=== PATIENT | female | born 1945 | race Caucasian/White ===

== ENCOUNTER 2020-07-10 04:15 | Emergency (ER) | payer MEDICARE, SELFPAY ==
--- NOTE | ~2020-07-10 | CT_ITS ---
EXAMINATION: CT abdomen pelvis wo con DATE: 07/10/2020 06:22 INDICATION: Left flank pain TECHNIQUE: Computed tomography (CT) of the abdomen and pelvis was performed without intravenous contr ast. The dose-length product (DLP) was 475.29 mGy-cm. Automated exposure control and iterative recons truction technique were employed. COMPARISON: None FINDINGS: There are multiple nodules of the visualized lung bases. Mucous plugging is also noted in t he right lower lobe. There are patchy airspace opacities of the lung bases. There is no pleural effus ion the heart size is normal. The liver, spleen, gallbladder, and adrenal glands are normal. There is low attenuation in the head of the pancreas without evidence of pancreatic duct abnormality, likely fatty infiltration. Tiny hyperattenuating lesion of the left kidney measuring up to 5 mm are too smal l to characterize but likely reflect hemorrhagic cysts. A 2 cm simple cyst is noted in the left kidne y. The right kidney is unremarkable. No stones are identified in the kidneys, ureters, or bladder. Th ere is no hydronephrosis or hydroureter. No pathologically enlarged abdominal or pelvic lymph nodes a re identified. There is no free intraperitoneal gas or evidence of bowel obstruction. Colonic diverti culosis is present without evidence of diverticulitis. There are fat-containing inguinal hernias. The re is severe lumbar spondylosis. IMPRESSION: 1. No CT correlate for the patient's symptoms. 2. Multiple nodules of the visualized lung bases which could be infectious or inflammatory however de dicated chest CT is recommended. These findings and recommendations were communicated to the Emergenc y Department at 0652 hours on 07/10/2020 by the [employer] Radiologist. Reviewed, dictated and finalized at location A. IMPRESSION: 1. No CT correlate for the patient's symptoms. 2. Multiple nodules of the visualized lung bases which could be infectious or i nflammatory however dedicated chest CT is recommended. These findings and recom mendations were communicated to the Emergency Department at 0652 hours on 2019 by the [employer] Radiologist.
[2020-07-10 04:24] VITALS: BP 160/93; PULSE 67; RESP 18; TEMP 36.6; O2SAT 98
[2020-07-10] MEDS: KETOROLAC 30 MG/ML VIAL (*BKC) IV PUSH (05:03)
[2020-07-10] MEDS: ONDANSETRON INJ 4 MG/2 ML VIAL IV PUSH (05:03)
--- NOTE | 2020-07-10 05:10 | ED.GENADULT ---
HPI - General Adult General Chief complaint: Abdominal Pain Stated complaint: Left flank pain Time Seen by Provider: 07/10/20 04:35 History of Present Illness HPI narrative: Patient is a 75-year-old female who presents ER with left-sided flank pain. Sudden onset earlier this evening. Associated with nausea and vomiting. She is also had frequent formed stools. No dysuria or hematuria. No urinary frequency. Has history of kidney stones many years ago and this feels similar. She is found no aggravating factors. She is tried heat and ice to no avail. She is also taken some Pepcid without improvement. Related Data Home Medications Medication Instructions Recorded Confirmed ascorbic acid (vitamin C) [Vitamin 500 mg PO DAILY 10/03/19 10/03/19 C] aspirin [Adult Low Dose Aspirin] 81 mg PO DAILY 10/03/19 10/03/19 atorvastatin 10 mg PO DAILY 10/03/19 10/03/19 cholecalciferol (vitamin D3) 1,000 unit PO DAILY 10/03/19 10/03/19 [Vitamin D3] fluticasone propionate 1 spray INTRANASAL BID 10/03/19 10/03/19 glucosamine-chondroitin 1 tablet PO DAILY 10/03/19 10/03/19 lisinopril 40 mg PO DAILY 10/03/19 10/03/19 montelukast 10 mg PO DAILY 10/03/19 10/03/19 conjugated estrogens 0.625 mg/gram See Rx Instructions .ROUTE .COMPLEX 07/07/20 vaginal cream Allergies Allergy/AdvReac Type Severity Reaction Status Date / Time ciprofloxacin Allergy Unknown Rash Verified 07/10/20 04:20 clarithromycin Allergy Unknown Rash Verified 07/10/20 04:20 codeine Allergy Unknown Nausea Verified 07/10/20 04:20 nitrofurantoin AdvReac Mild Headache Verified 07/10/20 04:20 [From Macrobid] Review of Systems Review of Systems: All systems reviewed & are unremarkable except as noted in HPI and below Constitutional: Constitutional: Denies chills, Denies fever(s) and Denies weakness Gastrointestinal: Gastrointestinal: Reports abdominal pain, Denies diarrhea, Reports nausea and Reports vomiting Genitourinary: Genitourinary: Denies hematuria, Denies nocturia, Denies dysuria and Reports flank pain PMFSH Social History Social History Smoking status: Never smoker Alcohol intake: never Exam Narrative: Exam Narrative: GENERAL: Uncomfortable-appearing, well-nourished, and in no acute distress. HEAD: Normocephalic, atraumatic. CHEST: Clear to auscultation. No respiratory distress. HEART: Regular rate and rhythm. Normal peripheral pulses. ABDOMEN: Soft, nontender, nondistended, no CVA tenderness. Back: No reproducible paraspinal muscular tenderness or midline tenderness. EXTREMITIES: Normal range of motion. No edema. SKIN: Warm, dry, no rash. NEURO: Alert and oriented x3. PSYCH: Normal mood and affect. Course Course Emergency Course: Patient informed of results. Talked about importance of follow-up with her PCP. She will be seen in 1 week but will call Sunday. Pain improved with Toradol and morphine. Patient reports negative Cologuard 1 year ago as well as negative mammogram. Vital Signs Vital signs: Vital Signs Temperature 97.9 F 07/10/20 04:24 Pulse Rate 67 07/10/20 04:24 Respiratory Rate 18 07/10/20 04:24 Blood Pressure 160/93 H 07/10/20 04:24 Pulse Oximetry 98 07/10/20 04:24 Temperature 97.9 F 07/10/20 04:24 Pulse Rate 64 07/10/20 06:24 Respiratory Rate 17 07/10/20 06:24 Blood Pressure 162/77 H 07/10/20 06:24 Pulse Oximetry 95 07/10/20 06:24 Medical Decision Making Vital Signs Vital Signs: Vital Signs Temperature 97.9 F 07/10/20 04:24 Pulse Rate 67 07/10/20 04:24 Respiratory Rate 18 07/10/20 04:24 Blood Pressure 160/93 H 07/10/20 04:24 Pulse Oximetry 98 07/10/20 04:24 Temperature 97.9 F 07/10/20 04:24 Pulse Rate 64 07/10/20 06:24 Respiratory Rate 17 07/10/20 06:24 Blood Pressure 162/77 H 07/10/20 06:24 Pulse Oximetry 95 07/10/20 06:24 Lab Data Result diagrams: 07/10/20 05:06
[2020-07-10 05:16] LABS: Basophils Percent Auto 0.4 % (0.2-1.2); Eosinophils Absolute Auto 0.1 K/mm3 (0-0.3); Eosinophils Percent Auto 0.9 % (0-4.4); Hematocrit 44.7 % (37.0-47.0); Hemoglobin 14.8 g/dL (12.0-15.0); Immature Granulocyte Absolute 0.02 K/mm3 (0.00-0.031); Immature Granulocyte Percent A 0.2 % (0-0.5); Lymphocytes Absolute Auto 1.26 K/mm3 (0.9-3.2); Lymphocytes Percent Auto 13.8 % (18.3-44.2); Mean Corpuscular HGB Conc 33.1 g/dl (32-36); Mean Corpuscular Hemoglobin 30.2 pg (26-34); Mean Corpuscular Volume 91.2 fl (80-100); Monocytes Absolute Auto 0.5 K/mm3 (0.1-0.6); Monocytes Percent Auto 5.6 % (2.6-8.5); Neutrophils Absolute Auto 7.2 K/mm3 (1.3-6.7); Neutrophils Percent Auto 79.1 % (45.5-73.1); Platelet Count Result 229 k/mm3 (150-375); Red Cell Distribution Width 12.3 % (11.5-14.5); White Blood Count 9.2 K/mm3 (4.5-10.0)
[2020-07-10 05:26] LABS: Anion Gap 9 mmol/L (8-16); Blood Urea Nitrogen 14 mg/dL (7-17); Calcium 10.3 mg/dL (8.4-10.2); Carbon Dioxide 28 mmol/L (22-30); Chloride 100 mmol/L (98-107); Estimated CRCL calculation 56 ml/min; Estimated Glomerular Filt Rate > 60; Glucose 120 mg/dL (65-105); Potassium 4.3 mmol/L (3.4-5.0); Sodium 137 mmol/L (137-145)
[2020-07-10 05:45] LABS: Add Urine Microscopic? YES; Appearance Urine Cloudy (Clear); Bilirubin Urine Negative (Negative); Blood Urine Negative (Negative); Color Urine Straw (Yellow); Glucose Urine UA Negative (Negative); Ketones Urine Negative (Negative); Leukocyte Esterase Ur Negative LEU/UL (Negative); Nitrate Urine Negative (Negative); Protein Urine 1+ mg/dL (Negative); Specific Grav Ur 1.011 (1.001-1.035); Squamous Epithelial Cell Urine Few /hpf (Few); Urobilinogen Urine Negative mg/dL (<2.0); WBC Urine 0-3 /hpf
[2020-07-10 06:24] VITALS: BP 162/77; PULSE 64; RESP 17; O2SAT 95
[2020-07-10] MEDS: MORPHINE SULFATE 4 MG/ML INJ IV PUSH (06:26)
[2020-07-10 07:08] VITALS: BP 138/72; PULSE 66; RESP 18; O2SAT 98
== END 2020-07-10 07:21 | disposition home or self-care (01) ==
PROVIDERS: Emergency Provider Emergency Medicine; PCP Emergency Medicine
DX: M54.5 Low back pain (principal); R91.8 Other nonspecific abnormal finding of lung field
CPT/HCPCS: 36415; 74176; 80048; 81001; 85025; 96374; 96375; 99284; J1885; J2270; J2405

== ENCOUNTER 2020-07-22 11:20 | Outpatient (CLI) | payer MEDICARE, SELFPAY ==
--- NOTE | ~2020-07-22 | CT_ITS ---
EXAMINATION:CT chest wo con DATE: 07/22/2020 11:47 INDICATION: Solitary pulmonary nodule. TECHNIQUE: Computed tomography (CT) of the chest was performed without intravenous contrast. Automate d exposure control and iterative reconstruction technique were employed. The dose-length product (DLP ) was 72.52 mGy-cm. COMPARISON: CT abdomen and pelvis 07/10/2020 FINDINGS: There is mild scarring at the lung apices. There is mild atelectasis bilaterally. There is mucous plugging in apicoposterior segment left upper lobe with local tree-in-bud opacities and centri lobular nodules. There are bronchoceles involving left upper lobe, right middle lobe, and right lower lobe. There is mild bronchiectasis in lingula. There are multiple scattered nodules in the lungs renita suring up to 8 mm in right lower lobe. No pleural effusion. The heart size is normal. There are coron radha artery calcifications. No pericardial effusion. There is mild pectus excavatum. There is moderate thoracic spondylosis. IMPRESSION: 1. Pulmonary nodules measuring up to 8 mm, which may be benign or less likely malignant. Consider non contrast low-dose chest CT in 3 months. Reviewed, dictated and finalized at location A. IMPRESSION: 1. Pulmonary nodules measuring up to 8 mm, which may be benign or less likely m alignant. Consider noncontrast low-dose chest CT in 3 months.
== END 2020-07-22 11:21 | disposition home or self-care (01) ==
LOC: ANHIMG 11:22
PROVIDERS: PCP Emergency Medicine; Visit Provider Emergency Medicine
DX: R91.8 Other nonspecific abnormal finding of lung field (principal)
CPT/HCPCS: 71250

== ENCOUNTER 2020-08-12 07:31 | Outpatient (CLI) | payer MEDICARE, SELFPAY ==
--- NOTE | 2020-08-12 07:48 | ECHO_ITS ---
Patient Info Name: Lois Serrano Age: 75 years : 1945 Gender: Female Ht: 66 in Wt: 162 lbs BSA: 1.86 m2 HR: 52 bpm BP: 199 / 100 mmHg Technical Quality: Fair Exam Date: 08/12/2020 8:02 AM Exam Location: [facility] Patient Status: Outpatient Admit Date: 08/12/2020 Staff Ordering Physician: Clifton Gipson MD Butt Welder: Skyla Guzman RDCS Attending Provider: Clifton Gipson MD Referring Physician: Branadn DÍAZ; Exam Type: CA echo doppler color flow Study Info Indications R01.1 - Cardiac murmur, unspecified Complete two-dimensional, color flow and Doppler transthoracic echocardiogram is performed. Summary 1. Complete two-dimensional, color flow and Doppler transthoracic echocardiogram is performed. 2. Left ventricular chamber dimension is normal. 3. Left ventricular systolic function is normal, estimated at 60-65%. 4. There is mildly increased left ventricular wall thickness. 5. The left ventricular diastolic function is grade I diastolic dysfunction. 6. E/e' 13 is mildly elevated. 7. Right ventricular systolic function is mildly reduced based on a TAPSE at 1.4 cm. Left Ventricle E/e' 13 is mildly elevated. Left ventricular chamber dimension is normal. Left ventricular systolic function is normal, estimated at 60-65%. There is mildly increased left ventricular wall thickness. The left ventricular diastolic function is grade I diastolic dysfunction. Right Ventricle Right ventricular systolic function is mildly reduced based on a TAPSE at 1.4 cm. Right ventricular chamber dimension is not well visualized. Left Atria Left atrial chamber dimension is normal. Right Atria Right atrial chamber dimension is normal. Aortic Valve The aortic valve is trileaflet. There is no aortic valve stenosis. There is no aortic valve regurgitation. Pulmonic Valve There is no pulmonic regurgitation. Mitral Valve There is no mitral valve stenosis. There is no mitral valve regurgitation. Tricuspid Valve There is no tricuspid valve regurgitation. Pericardium/Pleural There is no pericardial effusion. Aorta The aortic root size at the sinus of Valsalva is normal. Left Ventricular Outflow Tract Name Value Normal LVOT 2D LVOT Diameter 2.0 cm LVOT Doppler LVOT Peak Gradient 5 mmHg LVOT Mean Gradient 2 mmHg LVOT VTI 28 cm LVOT VTI/AV VTI Ratio 1.1 LVOT Stroke Volume 85 ml LVOT CO 4.6 l/min LVOT CI 2.5 l/min/m2 Mitral Valve Name Value Normal MV Doppler MV Decel [place] 212 cm/s2 MV PHT 76 ms MV Area (PHT) 2.9 cm2
== END 2020-08-12 07:32 | disposition home or self-care (01) ==
LOC: ANHCARD 07:33
PROVIDERS: PCP Emergency Medicine; Visit Provider Emergency Medicine
DX: R01.1 Cardiac murmur, unspecified (principal); R84.2 Abnormal level of other drugs, medicaments and biological substances in specimens from respiratory organs and thorax; R93.1 Abnormal findings on diagnostic imaging of heart and coronary circulation
CPT/HCPCS: 93306

== ENCOUNTER 2021-02-04 08:37 | Outpatient (CLI) | payer MEDICARE, SELFPAY ==
--- NOTE | ~2021-02-04 | CT_ITS ---
EXAMINATION: CT chest high resolution [facility] EXAM DATE: 02/04/2021 08:58 INDICATION: R91.1 - Solitary pulmonary nodule. TECHNIQUE: Spiral CT of the chest without contrast. HRCT. Axial, coronal and sagittal images were re viewed. Coronal maximum intensity pixel images of chest reviewed. The dose-length product (DLP) for this examination was 145.17 mGy-cm. The exposure was tailored according to patient size (auto mA ex posure control), and iterative reconstruction (ASIR) was used as additional dose reduction technique. Comparison is made to prior examination from 07/22/2020. FINDINGS: No intralobular septal thickening on the HRCT. Again there are scattered pulmonary nodules up to 8 mm in size, unchanged. Other larger fingerlike opacities appear to be within impacted subsegm ental bronchi, probably bronchoceles. There is left basilar scarring. Some scattered tree-in-bud post infectious residua. Mild emphysema. There is mild bronchiectasis. There are no pleural or pericardial effusions. There is no mediastinal, hilar or axillary lymphadenopathy. There is no pneumothorax. Heart normal in size. There is minimal coronary arterial calcification, arterial sclerosis. The re is 2 cm left renal cyst. There is thoracic spondylosis without osteoblastic or osteolytic lesions identified. A IMPRESSION: 1. Stable post infectious residua and bronchoceles. 2. Mild emphysema and bronchiectasis. 3. No suspicious findings. Reviewed, dictated and finalized at location A.
== END 2021-02-04 08:38 | disposition home or self-care (01) ==
PROVIDERS: PCP Emergency Medicine; Visit Provider Emergency Medicine
DX: R91.1 Solitary pulmonary nodule (principal); R91.8 Other nonspecific abnormal finding of lung field; J43.9 Emphysema, unspecified; J47.9 Bronchiectasis, uncomplicated
CPT/HCPCS: 71250

== ENCOUNTER → 2021-04-06 14:56 | Outpatient (CLI) | payer MEDICARE, SELFPAY ==
--- NOTE | ~2021-04-06 | MM_ITS ---
EXAMINATION: MM screening [facility] w brandon HISTORY: Screening TECHNIQUE: Craniocaudal and mediolateral oblique 3-D tomosynthesis images were obtained and synthetic 2-D images were generated. CAD analysis was submitted and interpreted. COMPARISON: Comparison to multiple prior studies sequentially, with oldest reviewed study dated 08/04. BREAST PARENCHYMAL COMPOSITION: There are scattered areas of fibroglandular density. FINDINGS: There is no evidence of suspicious mass, calcification, or architectural distortion to sugg est malignancy in either breast. There has been no suspicious interval change. IMPRESSION: 1. No mammographic evidence of malignancy. 2. Recommend routine screening mammography in one year. BI-RADS Category 1: Negative Reviewed, dictated and finalized at location A.
== END ==
PROVIDERS: PCP Internal Medicine; Visit Provider Internal Medicine
DX: Z12.31 Encounter for screening mammogram for malignant neoplasm of breast (principal)
CPT/HCPCS: 77063; 77067

== ENCOUNTER → 2022-11-23 11:04 | Outpatient (CLI) | payer MEDICARE, SELFPAY ==
--- NOTE | ~2022-11-23 | MM_ITS ---
EXAMINATION: MM screening [facility] BI w brandon HISTORY: Screening mammogram TECHNIQUE: Craniocaudal and mediolateral oblique 3-D tomosynthesis images were obtained and synthetic 2-D images were generated. CAD analysis was submitted and interpreted. COMPARISON: 04/06/2021, 10/01/2019, 09/16/2018 BREAST PARENCHYMAL COMPOSITION: The breasts are almost entirely fatty. FINDINGS: No suspicious mass, calcification, or architectural distortion are identified in either sherry ast to suggest malignancy. There has been no suspicious interval change. IMPRESSION: 1. No mammographic evidence of malignancy. 2. Recommend routine screening mammography in one year. BI-RADS Category 1: Negative Reviewed, dictated and finalized at location A. STERED NURSE CARDIOVASCULAR ICU
--- NOTE | ~2022-11-23 | DEXA_ITS ---
Bone Density Report Name: ANATSASIYA ARREDONDO Age: 77 Sex: Female Ethnicity: White Date of : 1945 Indication: postmenopausal; screening for osteoporosis; hysterectomy; Referring Provider: ASUNCION PURI Study: Bone densitometry was performed. Exam Date: November 23, 2022 Accession number: [id number] Bone Density: Region BMD T-score Z-score Classification AP Spine (L1, L4) 1.063 0.2 2.8 Normal Femoral Neck (Left) 0.589 -2.3 -0.1 Osteopenia Total Hip (Left) 0.816 -1.0 0.9 Normal Femoral Neck (Right) 0.576 -2.5 -0.3 Osteoporosis Total Hip (Right) 0.771 -1.4 0.5 Osteopenia Total Hip Mean 0.794 -1.2 0.7 Osteopenia World Health Organization criteria for BMD impression classify patients as: Normal (T-score at or above -1.0), Osteopenia (T-score between -1.0 and -2.5), or Osteoporosis (T-score at or below -2.5). 10-year Fracture Risk: FRAX not reported because: Some T-score for Spine Total or Hip Total or Femoral Neck at or below -2.5 Previous Exams: Region Exam Age BMD T-score BMD Change BMD Change Date g/cm2 vs Baseline vs Previous AP Spine(L1, L4) 11/23/2022 77 1.063 0.2 0.036* -0.031* 09/16/2018 73 1.094 0.5 0.067* -0.032* 09/12/2016 71 1.126 0.8 0.099* -0.003 06/30/2014 69 1.129 0.8 0.101* 0.050* 03/29/2012 66 1.079 0.4 0.052* 0.078* 12/20/2009 64 1.001 -0.3 -0.026* 0.012 09/17/2006 61 0.989 -0.4 -0.038* -0.038* 09/15/2005 60 1.028 -0.1 Total Hip(Left) 11/23/2022 77 0.816 -1.0 -0.233* -0.157* 09/16/2018 73 0.972 0.2 -0.076* -0.013 09/12/2016 71 0.986 0.4 -0.063* 0.028* 06/30/2014 69 0.958 0.1 -0.091* -0.006 03/29/2012 66 0.964 0.2 -0.084* -0.028* 12/20/2009 64 0.992 0.4 -0.057* 0.011 09/17/2006 61 0.981 0.3 -0.068* -0.068* 09/15/2005 60 1.049 0.9 Total Hip(Right) 11/23/2022 77 0.771 -1.4 -0.217* -0.150* 09/16/2018 73 0.921 -0.2 -0.067* -0.001 09/12/2016 71 0.922 -0.2 -0.066* -0.017 06/30/2014 69 0.938 0.0 -0.049* 0.022 03/29/2012 66 0.916 -0.2 -0.071* -0.030* 12/20/2009 64 0.947 0.0 -0.041* -0.026 09/17/2006 61 0.973 0.3 -0.015 -0.015 09/15/2005 60 0.988 0.4 *Denotes significance at 95% co
== END ==
PROVIDERS: PCP Physician Assistant Medical; Visit Provider Physician Assistant Medical
DX: Z12.31 Encounter for screening mammogram for malignant neoplasm of breast (principal); Z78.0 Asymptomatic menopausal state; M81.0 Age-related osteoporosis without current pathological fracture; M85.89 Other specified disorders of bone density and structure, multiple sites
CPT/HCPCS: 77063; 77067; 77080

== ENCOUNTER 2024-05-02 10:10 | Outpatient (CLI) | payer MEDICARE, SELFPAY ==
--- NOTE | ~2024-05-02 | MM_ITS ---
EXAMINATION: MM screening [facility] BI w brandon HISTORY: Screening TECHNIQUE: Craniocaudal and mediolateral oblique 3-D tomosynthesis images were obtained and synthetic 2-D images were generated. CAD analysis was submitted and interpreted. COMPARISON: Comparison to multiple prior studies sequentially, with oldest reviewed study dated 08/20. BREAST PARENCHYMAL COMPOSITION: Not dense: There are scattered areas of fibroglandular density. FINDINGS: There is no evidence of suspicious mass, calcification, or architectural distortion to sugg est malignancy in either breast. There has been no suspicious interval change. IMPRESSION: 1. No mammographic evidence of malignancy. 2. Recommend routine screening mammography in one year. BI-RADS Category 1: Negative Reviewed, dictated and finalized at location B.
== END 2024-05-02 10:11 ==
LOC: MICIMG 10:11
PROVIDERS: PCP Nurse Practitioner Family; Visit Provider Nurse Practitioner Family
DX: Z12.31 Encounter for screening mammogram for malignant neoplasm of breast (principal)
CPT/HCPCS: 77063; 77067

== ENCOUNTER 2025-10-06 10:14 | Outpatient (CLI) | payer MEDICARE, SELFPAY ==
--- NOTE | ~2025-10-06 | MM_ITS ---
EXAMINATION: MM screening [facility] BI w brandon HISTORY: Screening TECHNIQUE: Craniocaudal and mediolateral oblique 3-D tomosynthesis images were obtained and synthetic 2-D images were generated. CAD analysis was submitted and interpreted. COMPARISON: Comparison to multiple prior studies sequentially, with oldest reviewed study dated 09/10/2017. BREAST PARENCHYMAL COMPOSITION: Not dense: There are scattered areas of fibroglandular density. FINDINGS: There is a small circumscribed mass in the upper outer quadrant of the right breast, anterior third. There are peripheral calcifications of the mass. There are developing asymmetries in the subareolar and upper central aspect of the left breast. IMPRESSION: 1. Right breast mass and left breast asymmetries. 2. Additional mammographic views and possible breast ultrasound are recommended. BI-RADS Category 0: Incomplete: Needs additional imaging evaluation. Reviewed, dictated and finalized at location O. STRIAL ENGINEERING TECHNOLOGIST IMPRESSION: 1. Right breast mass and left breast asymmetries. 2. Additional mammographic views and possible breast ultrasound are recommended . BI-RADS Category 0: Incomplete: Needs additional imaging evaluation.
--- NOTE | ~2025-10-06 | DEXA_ITS ---
Bone Density Report Name: ANASTASIYA ARREDONDO Age: 80 Sex: Female Ethnicity: White Date of : 1945 Indication: osteopenia; height loss; hysterectomy; Referring Provider: Amira Hutchison Study: Bone densitometry was performed. Exam Date: October 06, 2025 Accession number: [id number] Bone Density: Region BMD T-score Z-score Classification AP Spine(L1, L4) 1.014 -0.2 2.5 Normal Femoral Neck (Left) 0.559 -2.6 -0.3 Osteoporosis Total Hip (Left) 0.784 -1.3 0.8 Osteopenia Femoral Neck (Right) 0.549 -2.7 -0.4 Osteoporosis Total Hip (Right) 0.733 -1.7 0.4 Osteopenia Total Hip Mean 0.759 -1.5 0.6 Osteopenia World Health Organization criteria for BMD impression classify patients as: Normal (T-score at or above -1.0), Osteopenia (T-score between -1.0 and -2.5), or Osteoporosis (T-score at or below -2.5). 10-year Fracture Risk: FRAX not reported because: Some T-score for Spine Total or Hip Total or Femoral Neck at or below -2.5 Previous Exams: -- Region Exam Age BMD T-score BMD Change BMD Change Date g/cm2 vs Baseline vs Previous -- AP Spine (L1,L4) 10/06/2025 80 1.014 -0.2 -1.3% -4.6%* 11/23/2022 77 1.063 0.2 3.5%* -2.9%* 09/16/2018 73 1.094 0.5 6.5%* -2.8%* 09/12/2016 71 1.126 0.8 9.6%* -0.2% 06/30/2014 69 1.129 0.8 9.8%* 4.6%* 03/29/2012 66 1.079 0.4 5.0%* 7.8%* 12/20/2009 64 1.001 -0.3 -2.6%* 1.2% 09/17/2006 61 0.989 -0.4 -3.7%* -3.7%* 09/15/2005 60 1.028 -0.1 Total Hip(Left) 10/06/2025 80 0.784 -1.3 -25.2%* -3.9%* 11/23/2022 77 0.816 -1.0 -22.2%* -16.1%* 09/16/2018 73 0.972 0.2 -7.3%* -1.3% 09/12/2016 71 0.986 0.4 -6.0%* 2.9%* 06/30/2014 69 0.958 0.1 -8.7%* -0.7% 03/29/2012 66 0.964 0.2 -8.0%* -2.8%* 12/20/2009 64 0.992 0.4 -5.4%* 1.1% 09/17/2006 61 0.981 0.3 -6.5%* -6.5%* 09/15/2005 60 1.049 0.9 Total Hip(Right) 10/06/2025 80 0.733 -1.7 -25.8%* -4.9%* 11/23/2022 77 0.771 -1.4 -21.9%* -16.3%* 09/16/2018 73 0.921 -0.2 -6.8%* -0.1% 09/12/2016 71 0.922 -0.2 -6.7%* -1.8% 06/30/2014 69 0.938 0.0 -5.0%* 2.4% 03/29/2012 66 0.916 -0.2 -7.2%* -3.2%* 12/20/2009 64 0.947 0.0 -4.1%* -2.7% 09/17/2006 61 0.973 0.3 -1.5% -1.5% 09/15/2005 60 0.988 0.4 -- *Denotes significance at 95% confidence level, LSC for AP Spine = 0.022 g/cm2, LSC for Total Hip = 0.027 g/cm2 Rate of change results reflect vertebral levels common to all scans Clinical Information Provided by Patient: Has used the following medications: Fosamax (i.e. alendronate), Vitamin D, Calcium Has the following medical conditions: Hysterectomy Patient maximum height was 66 Menopause Age: 40 No regular weight bearing exercise Drinks caffeinated beverages Onset of menses at age 11 Number of children 2 Impression: The patient has osteoporosis, based on the Right Femoral Neck T-score. The BMD for the AP Spine (L1,L4) decreased, changing by -4.6% since the last DXA exam. The BMD for the Total Hip(Left) decreased, changing by -3.9% since the last DXA exam. The BMD for the Total Hip(Right) decreased, changing by -4.9% since the last DXA exam. Discussion: INCREASED RISK OF FRACTURE. BONE DENSITY IS UNDESIRABLY LOW AT ONE OR MORE SKELETAL SITES, CONSISTENT WITH POSTMENOPAUSAL OSTEOPOROSIS. This patient's lowest T-score meets the World Health Organization's (WHO) criteria for osteoporosis at one or more sites (T-score -2.5 or below). In untreated patients, the risk of osteoporotic fracture increases approximately two-fold for each 1.0 SD decrease in T-score. Low bone density is not the only risk factor for fracture; also consider factors such as patient's age, frailty or poor health, risk of falling, risk of injury, previous osteoporotic fracture, family history of osteoporosis, cigarette smoking, low body weight, etc. Not everyone with low bone mineral density has osteoporosis; osteomalacia and other metabolic bone disorders should also be considered. Patients who have osteoporosis should be evaluated for specific diseases and conditions (secondary causes) that may cause or contribute to bone loss. The [place] [employer]ocrin[employer] (AACE) and National Osteoporosis Foundation (NOF) recommend pharmacologic intervention for all postmenopausal women whose T-score is in this range. The patient should follow a healthful lifestyle (good nutrition with adequate calcium and vitamin D, and appropriate weight-bearing exercise). Follow-Up: Consider a repeat BMD and Vertebral Fracture Assessment (VFA) exam in 2 years or sooner if medically necessary, to reassess this patient's status. Reported by: YOJANA on 10/06/2025 11:29:00 AM. Reviewed, dictated and finalized at location A.
== END 2025-10-06 10:15 | disposition home or self-care (01) ==
PROVIDERS: PCP Nurse Practitioner Family; Visit Provider Nurse Practitioner Family
DX: Z12.31 Encounter for screening mammogram for malignant neoplasm of breast (principal); N63.11 Unspecified lump in the right breast, upper outer quadrant; R92.8 Other abnormal and inconclusive findings on diagnostic imaging of breast; N95.8 Other specified menopausal and perimenopausal disorders; M81.0 Age-related osteoporosis without current pathological fracture; M85.89 Other specified disorders of bone density and structure, multiple sites
CPT/HCPCS: 77063; 77067; 77080